=== PATIENT | female | born 1980 | race Caucasian/White ===

== ENCOUNTER 2017-03-30 22:48 | Emergency (ER) | payer SELFPAY ==
[~2017-03-30] VITALS: Ht 160 cm; Wt 99.0 kg
[2017-03-30 22:50] VITALS: Ht 160 cm; Wt 99.0 kg
[2017-03-30] MEDS ORDERED: FAMOTIDINE 20 MG TAB PO STA (23:45)
[2017-03-30] MEDS ORDERED: ONDANSETRON (ODT) 4 MG TAB ODT STA (23:45)
[2017-03-30] MEDS ORDERED: LIDOCAINE/MYLANTA 40 ML BTL PO STA (23:45)
[2017-03-30] MEDS ORDERED: ACETAMINOPHEN 500 MG TAB PO STA (23:45)
[2017-03-30] MEDS ORDERED: OMEP20CA16 PO (23:52)
[2017-03-30] MEDS ORDERED: FAMO-96 PO (23:52)
[2017-03-30] MEDS ORDERED: ONDA4TAB14 PO (23:52)
[2017-03-30] MEDS ORDERED: ACET325T33 PO (23:53)
--- NOTE | 2017-03-31 00:32 | ERD ---
ER Documentation Chief Complaint Date/Time DATE: 03/31/17 TIME: 00:30 Chief Complaint pt bib self with c/o abd pain starting today hx ulcers HPI 37-year-old female with history of PUD presents to the emergency department complaining of epigastric pain rating 8 out of 10 for the past couple hours after eating a meal with acid reflux. Patient admits to having nausea. She denies any vomiting, diarrhea, fever. Patient states that she has tried cimetidine without any relief. ROS All systems reviewed and are negative except as per history of present illness. Medications Home Meds Active Scripts Acetaminophen* (Tylenol*) 325 Mg Tablet, 2 TAB PO Q6 Y for PAIN AND OR ELEVATED TEMP, #30 TAB Prov:SUMIT STORM PA-C 03/30/17 Ondansetron (Ondansetron Odt) 4 Mg Tab.rapdis, 4 MG PO Q6H Y for NAUSEA AND/OR VOMITING, #14 TAB Prov:SUMIT STORM PA-C 03/30/17 Omeprazole* (Omeprazole*) 20 Mg Capsule.dr, 20 MG PO DAILY, #14 Prov:SUMIT STORM PA-C 03/30/17 Famotidine* (Pepcid*) 20 Mg Tablet, 20 MG PO QHS for 4 Days, TAB Prov:SUMIT STORM PA-C 03/30/17 Allergies Allergies: Coded Allergies: No Known Allergy (Unverified , 03/30/17) PMhx/Soc History of Surgery: No Anesthesia Reaction: No Hx Neurological Disorder: No Hx Respiratory Disorders: No Hx Cardiac Disorders: No Hx Psychiatric Problems: No Hx Miscellaneous Medical Probl: No Hx Alcohol Use: No Hx Substance Use: No Hx Tobacco Use: No Smoking Status: Never smoker Physical Exam Vitals Vital Signs Date Time Temp Pulse Resp B/P Pulse Ox O2 Delivery O2 Flow Rate FiO2 03/30/17 22:50 98.2 84 16 171/79 98 Physical Exam GENERAL: well-developed/well-nourished, in no apparent distress, non-toxic appearing HENT: NC/AT, moist mucous membranes EYES: Conjunctiva normal NECK: Supple, no lymphadenopathy PULM: CTA bilaterally, no rales, rhonchi, or wheezing heard CV: Normal S1S2, RRR, good capillary refill GI: Soft, non-distended, tender to palpation epigastric Normal bowel sounds, no masses or organomegaly felt on exam No gross peritonitis, no bruits Negative Rovsing, negative Olsen, negative McBurney's point, Negative CVAT BACK: No masses EXT: No clubbing, cyanosis, or edema NEURO: Alert and Orientated SKIN: Intact, normal turgor PSYCH: Normal mood and mentation Results 24 hrs Current Medications Medications (Trade) Dose Ordered Sig/Fabiola Route PRN Reason Start Time Stop Time Status Last Admin Dose Admin Ondansetron HCl (Zofran Odt) 8 mg ONCE STAT ODT 03/30/17 23:45 03/30/17 23:47 DC 03/31/17 00:12 Miscellaneous Medication (Gi Cocktail (2)) 40 ml ONCE STAT PO 03/30/17 23:45 03/30/17 23:47 DC 03/31/17 00:12 Famotidine (Pepcid) 20 mg ONCE STAT PO 03/30/17 23:45 03/30/17 23:47 DC 03/31/17 00:12 Acetaminophen (Tylenol Tab) 1,000 mg ONCE STAT PO 03/30/17 23:45 03/30/17 23:47 DC 03/31/17 00:12 Procedures/MDM This is a 37-year-old female presenting to the emergency department with epigastric pain and symptoms of acid reflux for 1 day which is likely due to gastritis and GERD. Other differentials include but not limited to cholelithiasis, pancreatitis, appendicitis, peritonitis. Patient appears well, she has stable vital signs she is speaking clearly. In the ED she was given a GI cocktail, Zofran and Pepcid. Patient had relief. Patient stable to be discharged home to follow-up with PCP. Strict precautions were given to return if not improving. Prescription for Tylenol, Zofran, Prilosec and Pepcid were provided. She understands and agrees this plan Departure Diagnosis: Primary Impression: Epigastric pain Condition: Stable Patient Instructions: Gerd (Adult), Epigastric Pain (Uncertain Cause) Additional Instructions: FOLLOW UP WITH YOUR PRIMARY CARE PHYSICIAN TOMORROW.Return to this facility if you are not improving as expected. Take all medicines as directed. Return to this facility if you are not improving as expected. SUMIT STORM PA-C Mar 31, 2017 00:32
[2017-03-31 00:45] VITALS: BP 160/88; PULSE 70; RESP 16; TEMP 98
== END 2017-03-31 00:46 | disposition home or self-care (01) ==
LOC: FTE 22:48
DX: R10.13 Epigastric pain (principal); R11.0 Nausea
CPT/HCPCS: 99283

== ENCOUNTER 2019-05-23 13:22 | Emergency (ER) | payer MEDICAID ==
[~2019-05-23] VITALS: Ht 149.9 cm; Wt 90.6 kg
[~2019-05-23 13:22] MED LIST: ACET325T33 PO; BEN25 PO; FAMO-96 PO; IBUP-1542 PO; OMEP20CA17 PO; ONDA4TAB14 PO; PRED20TA PO
[2019-05-23 13:32] VITALS: BP 137/77; PULSE 88; RESP 18; Ht 149.9 cm; Wt 90.6 kg
[2019-05-23] MEDS ORDERED: IBUPROFEN 600 MG TAB PO ONE (14:00)
== END 2019-05-23 14:30 | disposition home or self-care (01) ==
LOC: FTE 13:22
DX: R52 Pain, unspecified (principal)
CPT/HCPCS: Z7502; Z7610; 99282